=== PATIENT | female | born 1995 | race Hispanic/Latino ===

== ENCOUNTER 2018-09-11 05:54 | Emergency (ER) | payer OTHER ==
[2018-09-11] MEDS ORDERED: Sodium Chloride 0.9% 1,000 ML IV STA (07:22)
--- NOTE | 2018-09-11 07:38 | ED PDOC ---
HPI: General Adult Time Seen by Provider: 09/11/18 07:09 Chief Complaint (Nursing): Back Pain Chief Complaint (Provider): Left Flank Pain History Per: Patient History/Exam Limitations: no limitations Onset/Duration Of Symptoms: Days (x4) Current Symptoms Are (Timing): Still Present Additional Complaint(s): 23 year old female, with no significant PMHx, presenting for evaluation of left flank pain x4 days. Patient reports the pain became worse today, prompting ED visit. Patient reports the pain is currently severe, constant, and non- radiating. Patient also reports some associated nausea. Patient states she took some Advil with mild relief of symptoms. Patient denies any urinary complaints, fevers, chills, vomiting, or diarrhea. Of note, patient reports a history of UTIs, but states her current symptoms feel different. PMD: None Past Medical History Reviewed: Historical Data, Nursing Documentation, Vital Signs Vital Signs: Last Vital Signs Temp 98.2 F 09/11/18 06:10 Pulse 68 09/11/18 06:10 Resp 16 09/11/18 06:10 BP 107/75 09/11/18 06:10 Pulse Ox 98 09/11/18 06:10 - Medical History PMH: No Chronic Diseases - Surgical History Surgical History: No Surg Hx - Family History Family History: States: Other Other Family History: Ovarian cysts - Home Medications Home Medications: Ambulatory Orders Medication Instructions Recorded RX: traMADol [Ultram] 50 mg PO TID PRN #15 tab 09/11/18 Sulfamethoxazole/Trimethoprim 1 tab PO BID #14 tab 09/11/18 [Bactrim DS 800 mg-160 mg] - Allergies Allergies/Adverse Reactions: Allergies Allergy/AdvReac Type Severity Reaction Status Date / Time amoxicillin Allergy RASH Verified 09/11/18 06:07 Review of Systems ROS Statement: Except As Marked, All Systems Reviewed And Found Negative Constitutional: Negative for: Fever, Chills Gastrointestinal: Positive for: Nausea. Negative for: Vomiting, Diarrhea Genitourinary Female: Negative for: Dysuria, Frequency, Incontinence Musculoskeletal: Positive for: Back Pain (left flank) Physical Exam - Reviewed Nursing Documentation Reviewed: Yes Vital Signs Reviewed: Yes - Physical Exam Appears: Positive for: Uncomfortable Head Exam: Positive for: ATRAUMATIC, NORMAL INSPECTION, NORMOCEPHALIC Skin: Positive for: Normal Color, Warm, Dry. Negative for: Rash Eye Exam: Positive for: EOMI, Normal appearance, PERRL ENT: Positive for: Normal ENT Inspection Neck: Positive for: Normal, Painless ROM, Supple Cardiovascular/Chest: Positive for: Regular Rate, Rhythm. Negative for: Murmur Respiratory: Positive for: Normal Breath Sounds. Negative for: Respiratory Dist ress Gastrointestinal/Abdominal: Positive for: Normal Exam, Soft. Negative for: Tenderness Back: Positive for: L CVA Tenderness. Negative for: Vertebral Tenderness Extremity: Positive for: Normal ROM. Negative for: Pedal Edema, Deformity Neurologic/Psych: Positive for: Alert, Oriented (x3). Negative for: Motor/Sensory Deficits - Laboratory Results Result Diagrams: 09/11/18 08:05 09/11/18 08:05 - ECG O2 Sat by Pulse Oximetry: 98 (RA) Pulse Ox Interpretation: Normal - Progress Re-evaluation Time: 10:00 Condition: Re-examined, Improved Medical Decision Making Medical Decision Makin Initial Impression: Left flank pain. Differential diagnoses include, but are not limited to nephrolithiasis, pyelonephritis, and musculoskeletal pain. Plan: -CT Abdomen and pelvis -BMP -Urine dip -CBC -1L NS IVB -Toradol 15mg IVP -Urine culture -Urinalysis -Reevaluation Urine dip reviewed and found to be positive for blood in urine. 0950 CT ABDOMEN AND PELVIS FINDINGS: LOWER THORAX: Unremarkable. LIVER: Unremarkable. No gross lesion or ductal dilatation. GALLBLADDER AND BILE DUCTS: Unremarkable. PANCREAS: Unremarkable. No gross lesion or ductal dilatation. SPLEEN: Unremarkable. ADRENALS: Unremarkable. No mass. KIDNEYS AND URETERS: No evidence of obstructing calculus. Slight dilatation of the collecting system of the kidneys noted more on the left side. VASCULATURE: Unremarkable. No aortic aneurysm. No aortic atherosclerotic calcification or mural plaque present. BOWEL: Unremarkable. No obstruction. No gross mural thickening. APPENDIX: Unremarkable. Normal appendix. PERITONEUM: Unremarkable. No free fluid. No free air. LYMPH NODES: Unremarkable. No enlarged lymph nodes. BLADDER: Mild circumferential urinary bladder wall thickening. REPRODUCTIVE: Unremarkable. BONES: No acute fracture. OTHER FINDINGS: None. IMPRESSION: No evidence of obstructing renal calculus or significant hydronephrosis. [id number] circumferential urinary bladder wall thickening. Please correlate clinically for cystitis. Scribe Attestation: Documented by [place], acting as a scribe for Jose Bagley MD. Provider Scribe Attestation: All medical record entries made by the Scribe were at my direction and personally dictated by me. I have reviewed the chart and agree that the record accurately reflects my personal performance of the history, physical exam, medical decision making, and the department course for this patient. I have also personally directed, reviewed, and agree with the discharge instructions and disposition. Disposition - Clinical Impression Clinical Impression: Flank pain, UTI (urinary tract infection) - Patient ED Disposition Is Patient to be Admitted: No Doctor Will See Patient In The: Office Counseled Patient/Family Regarding: Studies Performed, Diagnosis, Need For Followup - Disposition Referrals: [facility] [Outside] Disposition: Routine/Home Disposition Time: 10:07 Condition: GOOD Additional Instructions: ONEAL ARRIOLA, thank you for letting us take care of you today. Your provider was Jose Bagley MD and you were treated for LOWER ABDOMINAL PAIN,BACK PAIN. The emergency medical care you received today was directed at your acute symptoms. If you were prescribed any medication, please fill it and take as directed. It may take several days for your symptoms to resolve. Return to the Emergency Department if your symptoms worsen, do not improve, or if you have any other problems. Please contact your doctor or call one of the physicians/clinics you have been referred to that are listed on the Patient Visit Information form that is included in your discharge packet. Bring any paperwork you were given at discharge with you along with any medications you are taking to your follow up visit. Our treatment cannot replace ongoing medical care by a primary care provider outside of the emergency department. Thank you for allowing the [facility] team to be part of your care today. If you had an X-Ray or CT scan: A Radiologist will review the ED reading if any change in treatment is needed we will contact you. If you had a blood, urine, or wound culture: It will take several days for the results, if any change in treatment is needed we will contact you. If you had an STI test: It will take 48 hours for the results. Please call after 1 week if you have not heard back. Prescriptions: Sulfamethoxazole/Trimethoprim [Bactrim DS 800 mg-160 mg] 1 tab PO BID #14 tab RX: traMADol [Ultram] 50 mg PO TID PRN #15 tab PRN Reason: Pain, Severe (8-10) Instructions: Urinary Tract Infections in Adults Forms: [facility] (Italian)
[2018-09-11 08:30] LABS: BASO # 0.1 K/uL (0.0-0.2); BASO % 0.7 % (0.0-2.0); EOS # 0.2 K/uL (0.0-0.7); EOS % 2.2 % (0.0-4.0); HEMOGLOBIN 12.7 g/dL (12.0-16.0); LYMPH # 1.8 K/uL (1.0-4.3); LYMPH % 17.6 % (20.0-40.0); MEAN CELL VOLUME 90.9 fl (81.0-99.0); MEAN CORPUSCULAR HEMOGLOBIN 30.7 pg (27.0-31.0); MEAN CORPUSCULAR HGB CONC 33.7 g/dL (33.0-37.0); MEAN PLATELET VOLUME 8.7 fl (7.2-11.7); MONO % 9.8 % (0.0-10.0); NEUT % 69.7 % (50.0-75.0); RBC 4.15 Mil/uL (3.80-5.20); RED CELL DISTRIBUTION WIDTH 12.5 % (11.5-14.5)
[2018-09-11 08:38] LABS: SQUAMOUS EPITHIAL 8 /hpf (0-5); URINE BILIRUBIN NEGATIVE (NEGATIVE); URINE BLOOD MODERATE (NEGATIVE); URINE CLARITY SLIGHTY-CLOUDY (Clear); URINE COLOR YELLOW (YELLOW); URINE GLUCOSE (UA) NEG (Normal); URINE HYALINE CAST 0-2 /hpf (0-2); URINE LEUKOCYTE ESTERASE TRACE Leu/uL (Negative); URINE PROTEIN 30 mg/dL (NEGATIVE); URINE UROBILINOGEN 0.2-1.0 mg/dL (0.2-1.0)
[2018-09-11 08:39] LABS: BLOOD UREA NITROGEN 16 mg/dl (7-17); GFR NON-AFRICAN AMERICAN > 60
--- NOTE | 2018-09-11 09:54 | CT ---
Date of service: 09/11/2018 PROCEDURE: CT Abdomen and Pelvis without intravenous contrast HISTORY: left flank pain hematuria COMPARISON: None. TECHNIQUE: Axial and reformatted coronal and sagittal CT images of the abdomen and pelvis were obtained without IV or oral contrast administration.. Contrast dose: 0 Radiation dose: Total exam DLP = 267.57 mGy-cm. This CT exam was performed using one or more of the following dose reduction techniques: Automated exposure control, adjustment of the mA and/or kV according to patient size, and/or use of iterative reconstruction technique. FINDINGS: LOWER THORAX: Unremarkable. LIVER: Unremarkable. No gross lesion or ductal dilatation. GALLBLADDER AND BILE DUCTS: Unremarkable. PANCREAS: Unremarkable. No gross lesion or ductal dilatation. SPLEEN: Unremarkable. ADRENALS: Unremarkable. No mass. KIDNEYS AND URETERS: No evidence of obstructing calculus. Slight dilatation of the collecting system of the kidneys noted more on the left side. VASCULATURE: Unremarkable. No aortic aneurysm. No aortic atherosclerotic calcification or mural plaque present. BOWEL: Unremarkable. No obstruction. No gross mural thickening. APPENDIX: Unremarkable. Normal appendix. PERITONEUM: Unremarkable. No free fluid. No free air. LYMPH NODES: Unremarkable. No enlarged lymph nodes. BLADDER: Mild circumferential urinary bladder wall thickening. REPRODUCTIVE: Unremarkable. BONES: No acute fracture. OTHER FINDINGS: None. IMPRESSION: No evidence of obstructing renal calculus or significant hydronephrosis. [id number] circumferential urinary bladder wall thickening. Please correlate clinically for cystitis.
[2018-09-11 11:04] VITALS: BP 106/54; PULSE 71; RESP 19; TEMP 99
[2018-09-11 11:39] VITALS: O2SAT 98
== END 2018-09-11 11:06 | disposition home or self-care (01) ==
LOC: H.ER 05:54
DX: N39.0 Urinary tract infection, site not specified (principal); R10.9 Unspecified abdominal pain; Z87.440 Personal history of urinary (tract) infections
CPT/HCPCS: 74176; 80048; 81003; 81025; 85025; 87086; 87181; 96374; 99282; J1885; J7030